=== PATIENT | male | born 1980 | race African-American/Black ===

== ENCOUNTER 2017-02-18 07:54 | Emergency (ER) | payer SELFPAY ==
[2017-02-18] MEDS ORDERED: DOXYCYCLINE HYCLATE 100 MG TABLET PO ONE (08:19)
[2017-02-18] MEDS ORDERED: OXYCODONE-ACETAMINOPHEN 5-325 MG TABLET PO ONE (08:19)
[2017-02-18] MEDS ORDERED: LIDOCAINE 1% INJ-PF (10 MG/ML) 30 ML SDV INJ ONE (08:19)
--- NOTE | 2017-02-18 08:19 | ER Document Report ---
ED Skin Rash/Insect Bite/Abscs - General Chief Complaint: Skin Problem Stated Complaint: GROIN PAIN Time Seen by Provider: 02/18/17 08:07 Mode of Arrival: Ambulatory Information source: Patient Notes: Patient is a 36-year-old male with a history of one abscess that had to be incised and drained who presents to the ER today for abscess to his left groin/ buttock area that started 3 days ago. Patient states that his has had a history of MRSA but he has not that he knows of, however the last abscess that had to be incised and drained but not cultured so he does not know. He denies any fevers or chills, drainage from the area. TRAVEL OUTSIDE OF THE [place] IN LAST 30 DAYS: No Past Medical History - General Information source: Patient - Social History Smoking Status: Unknown if Ever Smoked Family History: Reviewed & Not Pertinent Patient has suicidal ideation: No Patient has homicidal ideation: No Renal/ Medical History: Denies: Hx Peritoneal Dialysis - Immunizations Hx Diphtheria, Pertussis, Tetanus Vaccination: Yes Review of Systems - Review of Systems Constitutional: No symptoms reported EENT: No symptoms reported Cardiovascular: No symptoms reported Respiratory: No symptoms reported Gastrointestinal: No symptoms reported Genitourinary: No symptoms reported Male Genitourinary: No symptoms reported Musculoskeletal: No symptoms reported Skin: See HPI Hematologic/Lymphatic: No symptoms reported Neurological/Psychological: No symptoms reported Physical Exam - Vital signs Vitals: Temp Pulse Resp BP Pulse Ox 98.5 F 64 16 133/77 H 98 02/18/17 07:55 02/18/17 07:55 02/18/17 07:55 02/18/17 07:55 02/18/17 07:55 - Notes Notes: PHYSICAL EXAMINATION: GENERAL: Uncomfortable, but in no acute distress. HEAD: Atraumatic, normocephalic. EYES: Pupils equal round and reactive to light, extraocular movements intact, sclera anicteric, conjunctiva are normal. NECK: Normal range of motion, supple without lymphadenopathy LUNGS: CTAB and equal. No wheezes rales or rhonchi. HEART: Regular rate and rhythm without murmurs ABDOMEN: Soft, no tenderness. No guarding, no rebound BACK: no vertebral tenderness, normal ROM GI/: no CVA tenderness EXTREMITIES: Normal range of motion, no pitting edema. No cyanosis. NEUROLOGICAL: Cranial nerves grossly intact. Normal sensory/motor exams. PSYCH: Normal mood, normal affect. SKIN: Warm, Dry, normal turgor, 3 cm indurated abscess to the left buttock, tender to palpation, erythematous, no drainage, fluctuance noted, no erythema surrounding Course - Vital Signs Vital signs: Temp Pulse Resp BP Pulse Ox 98.3 F 58 L 16 129/79 H 97 02/18/17 09:20 02/18/17 09:20 02/18/17 09:20 02/18/17 09:20 02/18/17 09:20 Procedures - Incision and Drainage Left Buttock Time completed: 09:00 Type: Simple Anesthetic type: 1% Lidocaine mL's of anesthetic: 4 Blade size: 11 I&D procedure: Betadine prep applied Incision Method: Incision made by scalpel Amount/type of drainage: much pus and some blood Discharge - Discharge Clinical Impression: Abscess of buttock, left Condition: Stable Disposition: HOME, SELF-CARE Instructions: Post Incision and Drainage, Oral Narcotic Medication ([facility]), Abscess ([facility]) Additional Instructions: Return immediately for any new or worsening symptoms. Follow up with primary care provider, call tomorrow to make followup appointment. Prescriptions: Doxycycline Hyclate 100 mg PO BID #20 capsule Forms: Return to Work
[2017-02-18] MEDS ORDERED: HYDROCODONE/ACETAMINOPHEN 5-325 MG 6 TAB/DSPK PO PRN (09:05)
[2017-02-18 09:24] VITALS: BP 129/79
== END 2017-02-18 09:23 | disposition home or self-care (01) ==
LOC: ER 07:54
PROC: 0H98XZZ Drainage of Buttock Skin, External Approach (ICD-10-PCS; principal; 2017-02-18)
DX: L02.31 Cutaneous abscess of buttock (principal)
CPT/HCPCS: 10060; 99283; 87070; 87205; 87075; 87077; J3490